=== PATIENT | female | born 1990 | race Caucasian/White ===

== ENCOUNTER 2016-08-03 07:51 | Inpatient (IN) | payer MEDICAID ==
[~2016-08-03] VITALS: Ht 160 cm; Wt 105.8 kg
[~2016-08-03 07:51] MED LIST: BACTDS PO; CALC600T5 PO; CEPH-443 PO; FERR240T9 PO; PREN-39 PO
[2016-08-03] MEDS ORDERED: LACTATED RINGER'S 1,000 ML IV SCH (08:21)
[2016-08-03 08:24] VITALS: Ht 160 cm; Wt 105.8 kg
[2016-08-03 08:26] VITALS: BP 113/84; PULSE 83; RESP 20
--- NOTE | 2016-08-03 08:29 | HP ---
Date/Time of Note Date/Time of Note DATE: 08/03/16 TIME: 08:28 OB - History Hx of Present Free Text/Dictation @39+wks GA in Active labor : 2 Para: 1 Care: Good Care Ultrasounds: Normal mid trimester US Obstetrical Complications: None Medical Complications: None Past Family/Social History * Past Medical, Surgical, Family and Obstetric Histories reviewed from chart. OB Admission Exam Physical Exam Abdomen: WNL Extremities: Normal Cervical Dilatation: 6cm Effacement: 75% Station: -1 Membranes: Intact Heart Rate: 140's Accelerations: Accelerations Present Decelerations: No Decelerations Varibility: Moderate Contractions on Admission: < 5 Minutes Apart OB Assessment/Plan Reason for admission: active labor, observation Plan: Expectant Management Other plan: Anticipated RAFFI REYNOLDS M.D. August 03, 2016 08:29
[2016-08-03] MEDS ORDERED: ACETAMINOPHEN/CODEINE #3 TAB PO PRN ×3 (08:30→11:00)
[2016-08-03] MEDS ORDERED: AMPICILLIN 2 GM/NS (PMX) 100 ML IV ONE (08:30)
[2016-08-03] MEDS ORDERED: MISOPROSTOL 200 MCG TAB PR PRN (08:30)
[2016-08-03] MEDS ORDERED: LACTATED RINGER'S 1,000 ML IV PRN (08:30)
[2016-08-03] MEDS ORDERED: METHYLERGONOVINE 0.2 MG INJ IM PRN (08:30)
[2016-08-03] MEDS ORDERED: LIDOCAINE 1% (MPF) 30 ML INJ INJ PRN (08:30)
[2016-08-03] MEDS ORDERED: BUTORPHANOL 2 MG INJ IV PRN ×2 (08:30)
[2016-08-03] MEDS ORDERED: OXYTOCIN 30 UNITS/LR 500 ML IV SCH ×2 (08:30)
[2016-08-03] MEDS ORDERED: IBUPROFEN 600 MG TAB PO PRN (08:30)
[2016-08-03] MEDS ORDERED: CARBOPROST 250 MCG INJ IM PRN (08:30)
[2016-08-03] MEDS ORDERED: OXYTOCIN 30 UNITS/LR 500 ML IV PRN (08:30)
[2016-08-03 08:48] LABS: ADD SCAN DIFF NO
[2016-08-03 08:51] LABS: ABNORMAL IP MESSAGE 1; BASOPHILS % 0.2 % (0.0-2.0); EOSINOPHILS # 0.1 10^3/ul (0.0-0.5); EOSINOPHILS % 0.6 % (0.0-7.0); HEMATOCRIT 32.3 % (37.0-47.0); HEMOGLOBIN 10.1 g/dl (12.0-16.0); LYMPHOCYTES # 1.5 10^3/ul (0.8-2.9); LYMPHOCYTES % 13.3 % (15.0-51.0); MEAN CORPUSCULAR HEMOGLOBIN 23.7 pg (29.0-33.0); MEAN CORPUSCULAR HGB CONC 31.3 g/dl (32.0-37.0); MEAN CORPUSCULAR VOLUME 75.6 fl (82.0-101.0); MONOCYTE # 0.5 10^3/ul (0.3-0.9); MONOCYTES % 4.2 % (0.0-11.0); NEUTROPHILS % 80.7 % (39.0-77.0); NUCLEATED RED BLOOD CELLS% 0.2 /100WBC (0.0-0.0); PLATELET COUNT 180 10^3/UL (140-415); RED BLOOD COUNT 4.27 10^6/ul (4.20-5.40); RED CELL DISTRIBUTION WIDTH 16.7 % (11.5-14.5); WHITE BLOOD COUNT 11.1 10^3/ul (4.8-10.8)
[2016-08-03 08:54] LABS: MEAN PLATELET VOLUME 12.9 fl (7.4-10.4)
[2016-08-03 09:06] LABS: INR 0.97; PROTIME 12.9 Sec (12.2-14.2)
[2016-08-03 09:07] LABS: PARTIAL THROMBOPLASTIN TIME 25.4 Sec (25.0-35.0)
--- NOTE | 2016-08-03 09:13 | RADRPT ---
PROCEDURE: US OB biophysical profile. CLINICAL INDICATION: decreased movements, contractions TECHNIQUE: Multiple sonographic images of the pelvis were obtained. The images were reviewed on a PACS workstation. COMPARISON: No prior studies are available for comparison. FINDINGS: There is a single viable intrauterine gestation. Cardiac activity is present with 142 beats per min [place]. There is a vertex presentation. The placenta is anterior. There is no evidence of placental abruption. There is a normal amount of amniotic fluid with an EVERT = 12.6 cm. Biophysical profile: movement 2/2 tone 2/2. breathing 2/2 EVERT 2/2 Total 10/16 RPTAT: AA . IMPRESSION: Normal biophysical profile. . .Niel Sims MD, MD Date Time Electronically viewed and signed by .Neil Sims MD, MD on 08/03/2016 09:13 .S/
--- NOTE | 2016-08-03 09:25 | TRIAGE ---
OB Triage Datetime Report Generated by CPN: 08/03/2016 09:24 Datetime: 08/03/2016 09:05 Vaginal Exam Dilatation (cms): 8.5 Effacement (%): 100 Station: -1 Exam By: LH Datetime: 08/03/2016 09:00 Comments: ULTRASOUND IN PROGRESS Datetime: 08/03/2016 08:53 Comments: ULTRASOUND AT BEDSIDE Datetime: 08/03/2016 08:46 Maternal Assessment Level of Consciousness: Fully Conscious DTR's/Clonus: DTRs 2+ Headache: Denies Blurred Vision: No Nausea/Vomiting: Denies RUQ Epigastric Pain: Denies Facial Edema: None Labor Evaluation Frequency: 2-4 Monitor Mode: External Duration (sec)2399: 50-70 Quality: Moderate Pattern: Normal: <= 5 Contractions in 10 Minutes Resting Tone [place]: Relaxed Heart Rate FHR Baseline Rate: 140 Monitor Mode: External US FHR Baseline Changes: No Baseline Change Variability: Moderate 6-25 bpm Accelerations: 15X15 Decelerations: None Category: Category I Pain Assessment Pain Scale: 7 Pain Presence: Intermittent Pain Type: Contraction Pain Location: Abdomen Pain Goal: 3 Pain Relief Measures: Comfort Measures Vaginal Exam Dilatation (cms): 7.0 Effacement (%): 70 Station: -2 Exam By: LH Membrane Status: Intact Cervix, Position: Anterior Datetime: 08/03/2016 08:32 Membranes Rupture Method: Spontaneous Amniotic Fluid Color: Clear Amniotic Fluid Amount: Copious Amniotic Fluid Odor: None Presentation 'A': Cephalic Datetime: 08/03/2016 08:21 Assessment Type: Admission Assessment Vaginal Bleeding: None Maternal Assessment Level of Consciousness: Fully Conscious DTR's/Clonus: DTRs 2+; No Clonus Headache: Denies Blurred Vision: No Respiratory Effort: Unlabored; Regular Rhythm; Equal Expansion Breath Sounds, Left: Clear and Equal Breath Sounds, Right: Clear and Equal Nausea/Vomiting: Denies RUQ Epigastric Pain: Denies Lower Extremities Edema: None Upper Extremities Edema: None Facial Edema: None Fall Risk Assessment History of Falling: (0) No Secondary Diagnosis: (0) No Ambulatory Aid: (0) Bedrest/Nurse Assist IV Therapy: (0) No Gait: (0) Normal/Bedrest/Immobile Mental Status: (0) Oriented to Own Ability Fall Score: 0 Fall Risk Score Definition: No Risk: No action required Pain Assessment Pain Scale: 7 Pain Presence: Intermittent Pain Type: Contraction Pain Location: Abdomen Pain Goal: 3 Membrane Status: Intact Datetime: 08/03/2016 08:12 Time of Arrival: 08/03/2016 08:34 EGA: 39.2 Arrived By: Ambulatory Arrived From: Home Chief Complaint: UC'S BLEEDING Movement: Present Rupture of Membranes: Denies Vaginal Bleeding: None Vaginal Discharge: Denies Recent Sexual Intercouse: Denies Time Provider Notified: 08/03/2016 08:12 Provider Notified: DR. MACK Initial Plan: SVE Datetime: 08/03/2016 08:10 Maternal Assessment Level of Consciousness: Fully Conscious DTR's/Clonus: DTRs 2+; No Clonus Headache: Denies Blurred Vision: No Respiratory Effort: Unlabored; Regular Rhythm; Equal Expansion Breath Sounds, Left: Clear and Equal Breath Sounds, Right: Clear and Equal Nausea/Vomiting: Denies RUQ Epigastric Pain: Denies Lower Extremities Edema: Bilateral Lower Extremities Degree: 1+ Upper Extremities Edema: None Degree: None Facial Edema: None Temperature Route: Axillary Fall Risk Assessment History of Falling: (0) No Secondary Diagnosis: (0) No Ambulatory Aid: (0) Bedrest/Nurse Assist IV Therapy: (0) No Gait: (0) Normal/Bedrest/Immobile Mental Status: (0) Oriented to Own Ability Fall Score: 0 Fall Risk Score Definition: No Risk: No action required Datetime: 08/03/2016 08:08 Vaginal Exam Dilatation (cms): 6.0 Effacement (%): 90 Station: -1 Exam By: OGBODU Membrane Status: Bulging Cervix, Consistency: Soft
--- NOTE | 2016-08-03 09:29 | RADRPT ---
PROCEDURE: US OB. CLINICAL INDICATION: Size and dates TECHNIQUE: Multiple sonographic images of the pelvis and gravid uterus were obtained. The images were reviewed on a PACS workstation. COMPARISON: No prior studies are available for comparison. FINDINGS: The study is limited. The cervix is dilated. There is a single viable intrauterine gestation. Cardiac activity is present with 142 beats per [place] te. There is a vertex presentation. The placenta is anterior. There is no evidence of placental abruption. There is a normal amount of amniotic fluid with an EVERT = 12.6 cm. The head was to low for accurate measurements. Measurements were made in order to determine age. The results are as follows: AC =35.9 cm FL =7.3 cm Estimated gestational age of approximately 38 weeks and 4 days based on ultrasound measurements. Clinical age: 39 weeks and 2 days. The estimated date of delivery is 08/13/2016, based on ultrasound measurements. The EFW = 3674 g, 66%, based on LMP age. RPTAT: AA IMPRESSION: Limited study due to a very dilated cervix. Single viable intrauterine gestation of approximately 38 weeks and 4 days based on ultrasound measu rements. head to allow for accurate measurements. .Neil Sims MD, Date Time Electronically viewed and signed by .Neil Sims MD, on 08/03/2016 09:29 .S/
--- NOTE | 2016-08-03 09:48 | LDN ---
Date/Time of Note Date/Time of Note DATE: 08/03/16 TIME: 09:46 Delivery Summary Normal spontaneous vaginal delivery of a baby boy from DOLOR[place] position cord clamped after stopped pulsation nasal oropharyngeal suction was performed on the perineum baby handed to the team for immediate attention placenta spontaneous expulsion inspected complete blood loss 300 mL no perineal laceration Problems: Infant Delivery Information Sex Infant Sex: male Apgars 1 Minute: 9 5 Minute: 9 Suctioning Delee suction performed: No Umbilical Cord Umbilical cord with: 3 Vessels Cord presentations: no nuchal cord Cord Blood was obtained: Yes Mother & Baby Disposition Disposition Mom & Baby to Maternity; Good: Yes GUERDA LEWIS MD August 03, 2016 09:48
[2016-08-03] MEDS ORDERED: ACETAMINOPHEN 325 MG TAB PO PRN (11:00)
[2016-08-03] MEDS ORDERED: BENZOCAINE 20% 56 ML SPRAY TOP PRN (11:00)
[2016-08-03] MEDS ORDERED: ONDANSETRON 4 MG INJ IV PRN (11:00)
[2016-08-03] MEDS ORDERED: OXYCODONE/ASPIRIN (4.88/325) TAB PO PRN ×2 (11:00)
[2016-08-03] MEDS ORDERED: LANOLIN 7 GM TUBE TOP PRN (11:00)
[2016-08-03] MEDS ORDERED: DIBUCAINE 1% 30 GM OINT PR PRN (11:00)
[2016-08-03] MEDS ORDERED: WITCH HAZEL/GLYCERIN PAD PR PRN (11:00)
[2016-08-03 11:45] VITALS: BP 104/57; PULSE 80; RESP 18
[2016-08-03] MEDS ORDERED: AMPICILLIN 1 GM/NS (PMX) 50 ML IV SCH (12:30)
[2016-08-03] MEDS: OXYTOCIN 30 UNITS/LR 500 ML IV SCH ×2 (12:31→14:54)
[2016-08-03] MEDS: IBUPROFEN 600 MG TAB PO SCH ×3 (12:33→23:51)
[2016-08-03 12:45] VITALS: BP 115/72; PULSE 86; RESP 18
[2016-08-03 14:00] VITALS: BP 114/58; PULSE 92; RESP 18
[2016-08-03] MEDS ORDERED: METHYLERGONOVINE 0.2 MG INJ IM ONE (14:30)
[2016-08-03 19:30] VITALS: BP 111/69; PULSE 75; RESP 19
[2016-08-03] MEDS: SENNA/DOCUSATE NA (8.6MG/50MG) TAB PO SCH (20:55)
[2016-08-04 04:00] VITALS: BP 100/61; PULSE 68; RESP 18
[2016-08-04] MEDS: IBUPROFEN 600 MG TAB PO SCH ×4 (05:55→23:44)
[2016-08-04 07:29] LABS: ADD SCAN DIFF NO
[2016-08-04 07:32] LABS: BASOPHILS % 0.2 % (0.0-2.0); EOSINOPHILS # 0.1 10^3/ul (0.0-0.5); EOSINOPHILS % 1.1 % (0.0-7.0); HEMATOCRIT 24.9 % (37.0-47.0); HEMOGLOBIN 7.8 g/dl (12.0-16.0); LYMPHOCYTES # 1.6 10^3/ul (0.8-2.9); LYMPHOCYTES % 12.7 % (15.0-51.0); MEAN CORPUSCULAR HEMOGLOBIN 23.9 pg (29.0-33.0); MEAN CORPUSCULAR HGB CONC 31.3 g/dl (32.0-37.0); MEAN CORPUSCULAR VOLUME 76.1 fl (82.0-101.0); MEAN PLATELET VOLUME 12.8 fl (7.4-10.4); MONOCYTE # 0.7 10^3/ul (0.3-0.9); MONOCYTES % 5.6 % (0.0-11.0); NEUTROPHILS % 79.4 % (39.0-77.0); PLATELET COUNT 148 10^3/UL (140-415); RED BLOOD COUNT 3.27 10^6/ul (4.20-5.40); RED CELL DISTRIBUTION WIDTH 16.9 % (11.5-14.5); WHITE BLOOD COUNT 12.6 10^3/ul (4.8-10.8)
[2016-08-04 08:30] VITALS: BP 98/56; PULSE 90; RESP 18
[2016-08-04] MEDS: SENNA/DOCUSATE NA (8.6MG/50MG) TAB PO SCH ×2 (09:28→21:21)
--- NOTE | 2016-08-04 15:33 | PN ---
Date/Time of Note Date/Time of Note DATE: 08/04/16 TIME: 15:32 OB Subjective Subjective Subjective day 1 Afebrile vital signs stable, abdomen soft uterus firm lochia normal extremity normal ambulation encouraged Laboratory Tests Test 08/04/16 07:05 White Blood Count 12.610^3/ul Red Blood Count 3.2710^6/ul Hemoglobin 7.8g/dl Hematocrit 24.9% Mean Corpuscular Volume 76.1fl Mean Corpuscular Hemoglobin 23.9pg Mean Corpuscular Hemoglobin Concent 31.3g/dl Red Cell Distribution Width 16.9% Platelet Count 75468^3/UL Mean Platelet Volume 12.8fl Neutrophils % 79.4% Lymphocytes % 12.7% Monocytes % 5.6% Eosinophils % 1.1% Basophils % 0.2% Nucleated Red Blood Cells % 0.0/100WBC Neutrophils # 10.010^3/ul Lymphocytes # 1.610^3/ul Monocytes # 0.710^3/ul Eosinophils # 0.110^3/ul Basophils # 0.010^3/ul Nucleated Red Blood Cells # 0.010^3/ul Current Medications Medications (Trade) Dose Ordered Sig/Ankush Route PRN Reason Start Time Stop Time Status Last Admin Dose Admin Lactated Ringer's 1,000 ml @ 125 mls/hr Q8H IV 08/03/16 08:21 08/03/16 10:57 DC 08/03/16 08:43 Ampicillin 100 ml @ 100 mls/hr ONCE ONCE IV 08/03/16 08:30 08/03/16 09:29 DC 08/03/16 08:52 Ampicillin (Ampicillin 1 Gm/ NS (Pmx)) 50 ml @ 100 mls/hr Q4H IV 08/03/16 12:30 08/03/16 12:30 DC Butorphanol Tartrate (Stadol) 1 mg Q2H PRN IV PAIN 08/03/16 08:30 08/03/16 10:57 DC Butorphanol Tartrate (Stadol) 2 mg Q2H PRN IV PAIN 08/03/16 08:30 08/03/16 10:57 DC Lidocaine 30 ml 30 ml ONCE PRN INJ EPISIOTOMY/TEARING 08/03/16 08:30 08/03/16 10:57 DC Oxytocin/Lactated Ringer's 500 ml @ 125 mls/hr ONCE -MAY REPEAT X1 IV 08/03/16 08:30 08/03/16 10:57 DC 08/03/16 09:35 Oxytocin/Lactated Ringer's 500 ml @ 125 mls/hr ONCE IV 08/03/16 08:30 08/03/16 10:57 DC 08/03/16 09:46 Ibuprofen (Motrin) 600 mg ONCE PRN PO Mild Pain (Pain Score 1-3) 08/03/16 08:30 08/03/16 10:57 DC 08/03/16 09:36 Acetaminophen/ Codeine Phosphate 2 tab 2 tab ONCE PRN PO Moderate to Severe Pain (4-10) 08/03/16 08:30 08/03/16 10:57 DC Lactated Ringer's 1,000 ml @ 2,000 mls/hr Q30M PRN IV PRE-EPIDURAL BOLUS 08/03/16 08:30 08/03/16 10:57 DC 08/03/16 08:53 Oxytocin/Lactated Ringer's 500 ml @ 0 mls/hr ONCE PRN IV For Hemorrhage Management 08/03/16 08:30 08/03/16 10:57 DC Methylergonovine Maleate (Methergine) 0.2 mg ONCE PRN IM VAGINAL BLEEDING 08/03/16 08:30 08/03/16 10:57 DC Carboprost Tromethamine (Hemabate) 250 mcg ONCE PRN IM VAGINAL BLEEDING 08/03/16 08:30 08/03/16 10:57 DC Misoprostol 1000 mcg 1,000 mcg ONCE PRN VT VAGINAL BLEEDING 08/03/16 08:30 08/03/16 10:57 DC Oxytocin/Lactated Ringer's 500 ml @ 125 mls/hr Q4H IV 08/03/16 10:54 08/03/16 18:00 DC 08/03/16 12:31 Ibuprofen (Motrin) 600 mg Q6 PO 08/03/16 12:00 08/04/16 12:32 Acetaminophen (Tylenol Tab) 650 mg Q4H PRN PO PAIN LEVEL 1-5 08/03/16 11:00 Acetaminophen/ Codeine Phosphate (Tylenol No.3) 1 tab Q4H PRN PO PAIN LEVEL 1-5 08/03/16 11:00 Acetaminophen/ Codeine Phosphate (Tylenol No.3) 2 tab Q4H PRN PO PAIN LEVEL 6-10 08/03/16 11:00 Oxycodone/Aspirin (Percodan) 1 tab Q3H PRN PO PAIN LEVEL 1-5 08/03/16 11:00 Oxycodone/Aspirin (Percodan) 2 tab Q3H PRN PO PAIN LEVEL 6-10 08/03/16 11:00 Ondansetron HCl (Zofran Inj) 4 mg Q6H PRN IV NAUSEA AND/OR VOMITING 08/03/16 11:00 Senna/Docusate Sodium (Senokot-S) 1 tab BID PO 08/03/16 21:00 08/04/16 09:28 [place]/ Glycerin (Tucks Pads) 1 pad BEDSIDE MEDICATION PRN VT HEMORRHOID/EPISIOTMY PAIN 08/03/16 11:00 08/03/16 12:32 Benzocaine (Dermoplast [place]) 1 spray BEDSIDE MEDICATION PRN TOP HEMORRHOID/EPISIOTMY PAIN 08/03/16 11:00 08/03/16 12:32 Dibucaine (Nupercainal) 1 applic BEDSIDE MEDICATION PRN VT HEMORRHOID/EPISIOTMY PAIN 08/03/16 11:00 Lanolin (Weq-T-Nranxn) 1 applic BEDSIDE MEDICATION PRN TOP BEDSIDE FOR WILLIE TO NIPPLES 08/03/16 11:00 08/03/16 12:31 Measles/Mumps/ Rubella Vaccine Live (Mmr Ii Vaccine) 0.5 ml ONCE ONCE SC* 08/05/16 09:00 08/05/16 09:01 Methylergonovine Maleate (Methergine) 0.2 mg ONCE ONCE IM 08/03/16 14:30 08/03/16 14:31 DC 08/03/16 14:16 GUERDA LEWIS MD August 04, 2016 15:33
[2016-08-04 15:44] VITALS: BP 106/51; PULSE 97; RESP 18
[2016-08-04 19:20] VITALS: BP 104/67; PULSE 90; RESP 20
[2016-08-05 04:00] VITALS: BP 101/60; PULSE 81; RESP 19
[2016-08-05] MEDS: IBUPROFEN 600 MG TAB PO SCH ×2 (06:06→12:11)
[2016-08-05 08:10] VITALS: BP 105/54; PULSE 86; RESP 18
[2016-08-05] MEDS ORDERED: MEASLES,MUMPS,RUBELLA VACCINE INJ SC* ONE (09:00)
[2016-08-05] MEDS: SENNA/DOCUSATE NA (8.6MG/50MG) TAB PO SCH (09:27)
[2016-08-05 15:50] VITALS: BP 107/57; PULSE 97; RESP 18
--- NOTE | 2016-08-05 16:09 | PD.PPDC ---
PATIENT ADMITTING CLERK Discharge Instruction Condition Patient Condition: Good Diet Diet: Resume Regular Diet Activity/Restrictions Restrictions: No Exercising No Lifting No Driving No Sexual Activity Nothing in the Vagina No [place] No Tampons, douche Follow-up Follow-up with Physician: 2, Week/Weeks Provider Information: Appointment office in 2 weeks for check Return to clinic for [facility] Instructions: Fever greater than 101 Chills Worsening abdominal pain Excessive Vaginal Bleeding More than 2 pads per hour Unable to tolerate diet OB Instructions: Breast Tenderness Depression Blurried Vision Headache GUERDA LEWIS MD August 05, 2016 16:09
--- NOTE | 2016-08-05 16:12 | DS ---
Date/Time of Note Date/Time of Note DATE: 08/05/16 TIME: 16:10 Discharge Summary Admission/Discharge Info Admit Date/Time August 03, 2016 at 08:21 Discharge Date/Time Aug 05 2016 at 1600 Final Diagnosis day 2 Patient Condition: Good Procedures Normal spontaneous vaginal delivery Hx of Present Illness Term in labor Hospital Course Satisfactory uneventful Home Meds Reported Medications Vits W-Ca,Fe,Fa(<1MG) ( Vitamins) 1 Tab Tablet, 1 TAB PO DAILY 04/25/14 Calcium Carbonate (CALCIUM) 600 Mg Tablet, 600 MG PO DAILY 04/25/14 Ferrous Gluconate (Iron) 1 Tab Tablet, 1 TAB PO DAILY 04/25/14 Discontinued Scripts Cephalexin* (Keflex*) 500 Mg Capsule, 500 MG PO BID for 5 Days, CAP Prov:MIRIAM GRIFFIN PA-C 10/24/14 Sulfamethoxazole-Trimethoprim* (Bactrim* DS) 800-160 Mg Tab, 1 TAB PO BID for 5 Days, TAB Prov:MIRIAM GRIFFIN PA-C 10/24/14 Follow-up Plan Appointment [facility] in 2 weeks for check Primary Care Provider Care Physician No Primary Time spent on discharge: < 30 minutes GUERDA LEWIS MD August 05, 2016 16:12
== END 2016-08-05 17:20 | disposition home or self-care (01) | DRG 775 ==
LOC: OBT 07:51 → L-D 07:52 → OBT 08:15 → L-D 08:21 → PP1 10:52
PROVIDERS: ADMIT Obstetrics & Gynecology; ATTEND Obstetrics & Gynecology
PROC: 10E0XZZ Delivery of Products of Conception, External Approach (ICD-10-PCS; principal; 2016-08-03)
PROC: 4A1HX4Z Monitoring of Products of Conception, Cardiac Electrical Activity, External Approach (ICD-10-PCS; 2016-08-03)
DX: O80 Encounter for full-term uncomplicated delivery (principal); Z37.0 Single live birth; Z3A.39 39 weeks gestation of pregnancy
CPT/HCPCS: 76815; 76818; 85025; 85610; 85730; 86592; 86706; 86900; 86901; 87340; G0463; J0290; J2590; J7120

== ENCOUNTER 2018-01-01 16:48 | Emergency (ER) | END 2018-01-01 17:49 | disposition home or self-care (01) ==

== ENCOUNTER 2018-05-07 22:56 | Emergency (ER) | payer MEDICAID ==
[~2018-05-07] VITALS: Ht 165.1 cm; Wt 100.9 kg
[~2018-05-07 22:56] MED LIST changes: -BACTDS PO; -CEPH-443 PO; +NITR-58 PO
[2018-05-07 23:31] VITALS: Ht 165.1 cm; Wt 100.9 kg
[2018-05-08] MEDS ORDERED: LIDOCAINE/MYLANTA 40 ML BTL PO STA (02:46)
[2018-05-08] MEDS ORDERED: BELLADONNA/PHENOBARBITAL TAB PO STA (02:46)
[2018-05-08] MEDS ORDERED: ONDANSETRON (ODT) 4 MG TAB ODT STA (03:58)
[2018-05-08] MEDS ORDERED: PROM5SYR2 PO (05:10)
[2018-05-08] MEDS ORDERED: IBUP-1542 PO (05:10)
[2018-05-08 05:29] VITALS: BP 114/66; PULSE 104; RESP 18
[2018-05-08] MEDS ORDERED: PROMETHAZINE/CODEINE 5ML CUP PO ONE (05:30)
--- NOTE | 2018-05-09 14:37 | ERD ---
ER Documentation Chief Complaint Chief Complaint cough/sob x 3 days. slight wheezing noted HPI 27-year-old female presents with cough, shortness of breath, body aches, and epigastric pain for the past 3 days. No treatments. Patient denies wheezing, respiratory distress, nausea, vomiting, diarrhea, fevers. In addition she denies dyspnea, lower extremity swelling or pain, pain on exertion, diaphoresis, nausea, radiating of pain, recent travel or immobilization, hemoptysis, dsypnea, history of clotting disorder, syncope. Denies past medical history. Denies allergies. Denies medications. Denies surgeries. Denies alcohol, tobacco, drug use. Up to date on vaccines. ROS All systems reviewed and are negative except as per history of present illness. Medications Home Meds Active Scripts Promethazine HCl/Codeine (Prometh-Codein 6.25-10 mg/5 ml) 5 Ml Syrup, 5 ML PO Q4 for cough, #4 OZ Prov:GONZALO BROOKS 05/08/18 Ibuprofen* (Motrin*) 600 Mg Tab, 600 MG PO Q6H PRN for PAIN AND OR ELEVATED TEMP, #30 TAB Prov:GONZALO BROOKS 05/08/18 Nitrofurantoin Monohyd Macrocr* (Macrobid*) 100 Mg Capsr, 100 MG PO BID for 5 Days, CAP Prov:SHREYA HANSON PA-C 01/01/18 Reported Medications Vits W-Ca,Fe,Fa(<1MG) ( Vitamins) 1 Tab Tablet, 1 TAB PO DAILY 04/25/14 Calcium Carbonate (CALCIUM) 600 Mg Tablet, 600 MG PO DAILY 04/25/14 Ferrous Gluconate (Iron) 1 Tab Tablet, 1 TAB PO DAILY 04/25/14 Allergies Allergies: Coded Allergies: No Known Allergies (Unverified Allergy, Unknown, 05/07/18) PMhx/Soc History of Surgery: No Anesthesia Reaction: No Hx Neurological Disorder: No Hx Respiratory Disorders: No Hx Cardiac Disorders: No Hx Psychiatric Problems: No Hx Miscellaneous Medical Probl: Yes (anemia) Hx Alcohol Use: No Hx Substance Use: No Hx Tobacco Use: No Smoking Status: Never smoker FmHx Family History: No diabetes, No coronary disease, No other Physical Exam Vitals Vital Signs Date Temp Pulse Resp B/P (MAP) Pulse Ox O2 O2 Flow FiO2 Time Delivery Rate 05/08/18 98.2 104 18 114/66 96 Room Air 05:29 (82) 05/07/18 98.7 100 18 121/66 99 23:31 (84) Physical Exam General: Well developed, well nourished. No acute distress. Head: Atraumatic. No sinus tenderness to palpation. Eyes: PERRLA. EOM's intact. No icterus, lesions, injection, or edema. Ears: Auricles nontender, with no erythema, lesions, or masses bilaterally. TMs pearly clay with + cone of light and no bulging or fluid lines bilaterally. Auditory canal patent with no discharge or impaction bilaterally. Landmarks appreciated bilaterally. Nose: Septum midline. Turbinates pink and moist. No lesions, polyps, or nasal discharge bilaterally. Throat: No tonsillar erythema, edema, or exudates noted bilaterally. No masses, lesions, or abscesses noted. Uvula midline. Airway patent. Mouth: Mucus membranes moist. No drooling, ulcers, bleeding, or lesions, noted. Neck: No lymphadenopathy noted. Tracheal midline, no goiter or nodules noted. No JVD. Heart: RR w/o murmur, rubs, or gallops. Lungs: Clear to auscultation bilaterally w/o wheezes, crackles, rhonchi. Symmetric rise and fall. Equal breath sounds. Abdomen: Soft, nontender, with no rigidity or guarding noted. No masses, lesions, or ecchymoses. Normoactive bowel sounds. No McBurney's point tenderness. Patient ambulatory. No tenderness to palpation in splenic area or splenomegaly. No CVA tenderness. Back: Full ROM. No midline tenderness. No step offs, bony deformity, masses, erythema, or edema noted. Extremities: 5/5 strength and full ROM of upper and lower extremeties bilaterally. Distal sensation and pulses intact. Normal cap refill. Skin: No rash or other lesions noted. Color normal for ethnicity. Neuro Alert and oriented x3. Psych: Normal mood and affect. Results 24 hrs Laboratory Tests Test 05/08/18 03:05 05/08/18 03:14 05/08/18 03:16 Bedside Glucose 99 mg/dL Bedside Urine pH (LAB) 6.0 Bedside Urine Protein (LAB) 1+ Bedside Urine Glucose (UA) Negative Bedside Urine Ketones (LAB) Negative Bedside Urine Blood 3+ Bedside Urine Nitrite (LAB) Negative Bedside Urine Leukocyte Esterase (L Negative POC Beta HCG, Qualitative NEGATIVE Current Medications Medications Dose Sig/Ankush Start Time Status Last (Trade) Ordered Route PRN Stop Time Admin Dose Reason Admin 40 ml ONCE STAT 05/08/18 DC 05/08/18 Miscellaneous PO 02:46 03:19 Medication 05/08/18 02:47 (Gi Cocktail (2)) Belladonna/ 2 tab ONCE STAT 05/08/18 DC 05/08/18 Phenobarbital PO 02:46 03:19 () 05/08/18 02:47 Ondansetron 8 mg ONCE STAT 05/08/18 DC 05/08/18 HCl (Zofran ODT 03:58 04:02 Odt) 05/08/18 03:59 Promethazine 10 ml ONCE ONCE 05/08/18 DC 05/08/18 HCl/ PO 05:30 05:16 Codeine 05/08/18 05:31 (Phenergan/ Codeine) Procedures/MDM DIAGNOSTIC IMAGING REPORT Patient: NAKUL LAURENT : 1990 Age: 27 Sex: F MR #: [id number] DOS: 05/08/18 0244 Ordering MD: GONZALO BROOKS Location: [facility] Room/Bed: PROCEDURE: XR Chest. CLINICAL INDICATION: SOB TECHNIQUE: AP portable semi upright chest was obtained COMPARISON: Chest 10/24/2014 FINDINGS: Hypoventilatory chest. Cardiomediastinal silhouette is normal. Pulmonary vascul ature is normal. Lungs and costophrenic angles are clear. Bones soft tissues are unremarkable. IMPRESSION: No evidence of acute cardiopulmonary disease. RPTAT:AAJJ Physician Jeri Date Time Electronically viewed and signed by Physician Jeri on 05/08/2018 03:21 BM/ CC: GONZALO BROOKS [id number] EKG: Rate/Rhythm: Normal Sinus Rhythm QRS, ST, T-waves: No changes consistent w/ acute ischemia Impression: No evidence of ischemia or arrhythmia 27-year-old female presents with cough, shortness of breath, body aches, and epigastric pain for the past 3 days. No treatments. Patient denies wheezing, respiratory distress, nausea, vomiting, diarrhea, fevers. In addition she denies dyspnea, lower extremity swelling or pain, pain on exertion, diaphoresis, nausea, radiating of pain, recent travel or immobilization, hemoptysis, dsypnea, history of clotting disorder, syncope. Patient was actively coughing in the ER so was given promethazine with codeine. X-ray was performed and was within normal limits. EKG was also performed and was within normal limits. UA was performed is within normal limits. Patient given GI cocktail due to complaint of epigastric pain. I have low suspicion for acute coronary syndrome, pulmonary embolism, aortic dissection, AAA, pneumothorax, esophageal rupture, or pneumonia based on EKG, imaging, labs, patient history and exam. I have low suspicion for strep throat based on history and exam findings, as well as patient not meeting centor criteria for rapid strep te sting. I have low suspicion for bacterial sinusitis, tuberculosis, meningitis, aspirated foreign body, respiratory distress, acute heart failure or other life threatening etiology based on patient history and exam findings. Most likely etiology is viral URI and no further tests are necessary. Patient given rx for promethazine with codeine and ibuprofen. At discharge patient's vitals were stable and she was showing no signs of respiratory distress.. Patient advised to rest and stay well hydrated. Patient discharged with strict ER precautions. Patient advised to follow up with PMD. All questions answered at discharge. Departure Diagnosis: Primary Impression: URI (upper respiratory infection) URI type: unspecified viral URI Qualified Codes: J06.9 - Acute upper respiratory infection, unspecified Condition: Stable Patient Instructions: Preventing Common Respiratory Infections, Uri, Viral, No Abx (Adult) Additional Instructions: FOLLOW UP WITH YOUR PRIMARY CARE PHYSICIAN TOMORROW.Return to this facility if you are not improving as expected. GONZALO BROOKS May 09, 2018 14:37
== END 2018-05-08 05:38 | disposition home or self-care (01) ==
LOC: FTE 22:56
DX: J06.9 Acute upper respiratory infection, unspecified (principal); R06.02 Shortness of breath
CPT/HCPCS: 71045; 81003; 81025; 82962; Z7502; Z7610

== ENCOUNTER 2019-01-01 15:32 | Emergency (ER) | payer MEDICAID ==
[~2019-01-01] VITALS: Ht 162.6 cm; Wt 100.8 kg
[~2019-01-01 15:32] MED LIST changes: +ACET500C5 PO; +IBUP-1542 PO; +PROM5SYR2 PO
[2019-01-01 15:35] VITALS: Ht 162.6 cm; Wt 100.8 kg
[2019-01-01] MEDS ORDERED: ACETAMINOPHEN 500 MG TAB PO STA (17:08)
[2019-01-01 19:35] VITALS: BP 128/74; PULSE 81; RESP 16
== END 2019-01-01 19:35 | disposition home or self-care (01) ==
LOC: FTE 15:32
DX: N30.01 Acute cystitis with hematuria (principal); R06.02 Shortness of breath
CPT/HCPCS: 71045; 76830; 76856; 80053; 81001; 81025; 84484; 85025; 93005; Z7610